=== PATIENT | male | born 1985 | race Caucasian/White ===

== ENCOUNTER 2016-09-14 05:30 | Emergency (ER) | payer BC ==
[2016-09-14] MEDS ORDERED: 0.9 % SODIUM CHLORIDE 1,000 ML BAG IV ONE (05:40)
[2016-09-14] MEDS ORDERED: ONDANSETRON HCL IV 4 MG/2 ML VIAL IV ONE (05:40)
[2016-09-14] MEDS ORDERED: KETOROLAC 30 MG/ML VIAL IVP ONE (05:40)
--- NOTE | 2016-09-14 05:47 | Emergency Department Record ---
History of Present Illness - General Source: Patient Mode of Arrival: Ambulatory Limitations: No limitations - History of Present Illness Initial Comments: 31 yo male presents with 3 days of recurrent LLQ pain. The pain is a sharpness or pressure in the LLQ. No swelling. No hematuria. He had a bowel movement and got some relief temporarily. No fever. No diarrhea. No urinary symptoms. The pain does seem to come and go. It return early this morning. Last year he had some LLQ pain as well. He was being worked up for a hernia but the pain stopped and he did not undergo testing. MD Complaint: Abdominal pain -: Days(s) (3) Location: LLQ Radiation: LLQ Migration to: LLQ Quality: Aching, Fullness, Stabbing Consistency: Intermittent Improves With: Bowel movement Worsens With: Nothing Associated Symptoms: Denies other symptoms <GRICELDA WHEAT - Last Filed: 09/14/16 06:38> <Sathya Momin - Last Filed: 09/14/16 07:31> - General Chief Complaint: Abdominal Pain Stated Complaint: ABDOMINAL PAIN Time Seen by Provider: 09/14/16 05:40 - Related Data Previous Rx's Medication Instructions Recorded Hydrocodone/Acetaminophen [Amberson 1 tab PO Q6H PRN #10 tab 09/14/16 5mg/325mg] Naproxen [Naprosyn] 500 mg PO Q12H #20 tab. 09/14/16 Allergies Allergy/AdvReac Type Severity Reaction Status Date / Time No Known Drug Allergies Allergy Verified 11/11/14 21:35 Review of Systems Constitutional: Denies: Chills, Fever, Malaise, Weakness Eyes: Denies: Eye discharge, Eye pain, Photophobia ENT: Denies: Congestion, Throat pain Respiratory: Denies: Cough, Dyspnea Cardiovascular: Denies: Chest pain, Syncope Endocrine: Denies: Fatigue, Polydipsia, Polyuria Gastrointestinal: Reports: As per HPI, Abdominal pain, Nausea. Denies: Constipation, Diarrhea, Hematemesis, Hematochezia, Melena, Vomiting Genitourinary: Denies: Discharge, Dysuria, Frequency, Hematuria, Incontinence, Retention, Testicular pain, Testicular mass, Urgency Musculoskeletal: Denies: Arthralgia, Back pain, Myalgia Skin: Denies: Bruising, Change in color, Rash Neurological: Denies: Headache Psychiatric: Denies: Anxiety Hematological/Lymphatic: Denies: Blood Clots, Easy bleeding, Easy bruising <GRICELDA WHEAT - Last Filed: 09/14/16 06:38> Past Medical History - SOCIAL HISTORY Smoking Status: Former smoker - RESPIRATORY Hx Respiratory Disorders: No - CARDIOVASCULAR Hx Cardio Disorders: No - NEURO Hx Neuro Disorders: No - GI Hx GI Disorders: No - Hx Genitourinary Disorders: No - ENDOCRINE Hx Endocrine Disorders: No - MUSCULOSKELETAL Hx Musculoskeletal Disorders: No - PSYCH Hx Psych Problems: No - HEMATOLOGY/ONCOLOGY Hx Hematology/Oncology Disorders: No <GRICELDA WHEAT - Last Filed: 09/14/16 06:38> Physical Exam - General General Appearance: Alert, Oriented x3, Cooperative, No acute distress Limitations: No limitations - Head Head exam: Normal inspection - Eye Eye exam: Normal appearance, PERRL. negative: Conjunctival injection, Scleral icterus - ENT ENT exam: Normal exam, Mucous membranes moist Ear exam: Normal external inspection Nasal Exam: Normal inspection Mouth exam: Normal external inspection - Neck Neck exam: Normal inspection, Full ROM. negative: Tenderness - Respiratory Respiratory exam: Normal lung sounds bilaterally. negative: Respiratory distress - Cardiovascular Cardiovascular Exam: Regular rate, Normal rhythm, Normal heart sounds - GI/Abdominal GI/Abdominal exam: Soft, Tenderness (tender in the LLQ, soft abdomen, no obvious mass on examination or hernia, testicles are non tender). negative: Diminished bowel sounds, Distended, Guarding, Hernia, Rebound, Rigid - Rectal Rectal exam: Deferred - exam: Normal inspection. negative: Scrotal swelling, Testicular tenderness, Urethral discharge - Extremities Extremities exam: Normal inspection, Full ROM, Normal capillary refill. negative: Tenderness - Back Back exam: Reports: Normal inspection, Full ROM. Denies: CVA tenderness (R), CVA tenderness (L), Muscle spasm, Rash noted, Tenderness - Neurological Neurological exam: Alert, Normal gait, Oriented X3 - Psychiatric Psychiatric exam: Normal affect, Normal mood. negative: Anxious - Skin Skin exam: Dry, Intact, Normal color, Warm <GRICELDA WHEAT - Last Filed: 09/14/16 06:38> Course - Reevaluation(s) Reevaluation #1: The CBC and CMP were reviewed. No acute changes. The patient is getting some improvement is pain control and nausea control. 09/14/16 06:10 Reevaluation #2: CT from [facility] reviewed: multiple prominent lymph nodes non pathologic in the mesentery. Non specific but can be found with mesenteric adenitis. Otherwise no acute processs UA has not been obtained and patient is unable to provide one at this time. The patient is doing much better at this time Pain is controlled. 09/14/16 06:38 09/14/16 06:38 <GRICELDA WHEAT - Last Filed: 09/14/16 06:38> Vital Signs 09/14/16 09/14/16 05:36 07:18 Temperature 97.7 F Pulse Rate 81 Pulse Rate [ 66 Pulse Ox Probe] Respiratory 22 16 Rate Blood Pressure 139/101 Blood Pressure 128/84 [Right Arm] Pulse Ox 99 98 - Reevaluation(s) Reevaluation #1: The patient was informed of his UA results and was instructed to see his PCP for recheck of the UA due to the small amount of RBC's present. 09/14/16 07:31 <Sathay Momin - Last Filed: 09/14/16 07:31> Medical Decision Making - Lab Data Result diagrams: 09/14/16 05:45 09/14/16 05:45 <GRICELDA WHEAT - Last Filed: 09/14/16 06:38> - Lab Data Result diagrams: 09/14/16 05:45 09/14/16 05:45 Lab Results 09/14/16 09/14/16 09/14/16 Range/Units 05:45 05:45 07:10 WBC 11.5 (4.2-12.2) K/uL RBC 5.26 (4.40-5.70) M/uL Hgb 15.2 (14.0-18.0) gm/dl Hct 45.5 (42.0-52.0) % MCV 86.5 (81-97) fl MCH 28.9 (27-33) pg MCHC 33.4 (32-36) g/dl RDW 13.0 (11.5-14.5) % Plt Count 424 H (130-400) K/uL MPV 8.9 (7.4-10.4) fl Neutrophils % 27.0 L (47-80) % Band Neutrophils % 0.0 (0-5) % Lymphocytes % 64.0 H (16-45) % Monocytes % 8.0 (0-9) % Eosinophils % 1.0 (0-6) % Basophils % 0.0 (0-6) % Sodium 145 (136-145) mmol/L Potassium 3.4 L (3.5-5.1) mmol/L Chloride 108 H (98-107) mmol/L Carbon Dioxide 26.1 (22-30) mmol/L Anion Gap 10.9 (7-16) BUN 15 (9-20) mg/dL Creatinine 0.9 (0.66-1.25) mg/dL Estimated GFR > 60 ml/min Random Glucose 119 H (70-110) mg/dL Calcium 9.2 (8.5-10.1) mg/dL Urine Color Yellow Urine Appearance Clear Urine pH 6.0 (5.0-8.0) Ur Specific [place] 1.025 (1.002-1.030) Urine Protein Negative (NEGATIVE) Urine Glucose (UA) Negative (NEGATIVE) Urine Ketones Negative (NEGATIVE) Urine Blood Large H (NEGATIVE) Urine Nitrite Negative (NEGATIVE) Urine Bilirubin Negative (NEGATIVE) Urine Urobilinogen 0.2 (0.20 - 1.00) E.U./dL Ur Leukocyte Esterase Negative (NEGATIVE) Urine RBC 7 - 10 (NONE SEEN) Urine WBC None seen (0-2/hpf) Ur Epithelial Cells None seen (FEW) Urine Bacteria None seen <Sathya Momin - Last Filed: 09/14/16 07:31> Disposition <GRICELDA WHEAT - Last Filed: 09/14/16 06:38> <Sathya Momin - Last Filed: 09/14/16 07:31> Clinical Impression: Abdominal pain, Mesenteric adenitis Instructions: Mesenteric Adenitis (ED) Additional Instructions: Return to the ER if you have any fever, uncontrolled pain, vomiting or new symptoms Call your doctor for close follow up Rest and stay well hydrated Prescriptions: Naproxen [Naprosyn] 500 mg PO Q12H #20 tab. Hydrocodone/Acetaminophen [Amberson 5mg/325mg] 1 tab PO Q6H PRN #10 tab PRN Reason: Pain - General Forms: Patient Portal Access
[2016-09-14] MEDS ORDERED: MORPHINE SULFATE 5 MG/ML PFS IVP ONE (05:49)
[2016-09-14 05:51] LABS: HEMATOCRIT 45.5 % (42.0-52.0); HEMOGLOBIN 15.2 gm/dl (14.0-18.0); MEAN CELL VOLUME 86.5 fl (81-97); MEAN CORPUSCULAR HEMOGLOBIN 28.9 pg (27-33); MEAN CORPUSCULAR HGB CONC 33.4 g/dl (32-36); MEAN PLATELET VOLUME 8.9 fl (7.4-10.4); PLATELET COUNT 424 K/uL (130-400); RED BLOOD COUNT 5.26 M/uL (4.40-5.70); WHITE BLOOD COUNT W/O DIFF 11.5 K/uL (4.2-12.2)
[2016-09-14 06:01] LABS: ANION GAP 10.9 (7-16); BLOOD UREA NITROGEN 15 mg/dL (9-20); CARBON DIOXIDE 26.1 mmol/L (22-30); CREATININE 0.9 mg/dL (0.66-1.25); EST GLOMERULAR FILTRATION RATE > 60 ml/min; GLUCOSE,RANDOM 119 mg/dL (70-110)
[2016-09-14 07:17] LABS: URINE APPEARANCE CLEAR; URINE BILIRUBIN NEGATIVE (NEGATIVE); URINE BLOOD LARGE (NEGATIVE); URINE COLOR YELLOW; URINE GLUCOSE (UA) NEGATIVE (NEGATIVE); URINE KETONE NEGATIVE (NEGATIVE); URINE LEUKOCYTE ESTERASE NEGATIVE (NEGATIVE); URINE NITRITE NEGATIVE (NEGATIVE); URINE PROTEIN NEGATIVE (NEGATIVE); URINE UROBILINOGEN 0.2 E.U./dL (0.20 - 1.00)
[2016-09-14 07:22] LABS: URINE BACTERIA NONE SEEN; URINE EPITHELIAL CELLS NONE SEEN (FEW); URINE WBC NONE SEEN (0-2/hpf)
--- NOTE | 2016-09-14 10:04 | CT SCAN REPORT ---
EXAM: CT OF THE ABDOMEN AND PELVIS WITHOUT CONTRAST HISTORY: LEFT LOWER ABDOMINAL PAIN. TECHNIQUE: Sequential axial images were obtained from the diaphragms through the ischiorectal fossa without intravenous or oral contrast administration. FINDINGS: There is a 3 mm obstructing calculus at the left ureteral vesicular junction. This produces mild left hydronephrosis. No perinephric fat stranding. No additional calculi are appreciated. The nonopacified liver, gallbladder, pancreas, and spleen appear normal. The adrenal glands appear normal. The small bowel appears normal. The appendix is visualized and appears normal. The colon appears normal. The urinary bladder appears normal. The osseous structures are normal. IMPRESSION: 3 MM OBSTRUCTING CALCULUS AT THE LEFT URETERAL VESICULAR JUNCTION. THIS PRODUCES MILD LEFT HYDRONEPHROSIS. JOB NUMBER: [id number] [facility]
== END 2016-09-14 07:35 | disposition home or self-care (01) ==
LOC: ER 05:30
DX: I88.0 Nonspecific mesenteric lymphadenitis (principal); R10.32 Left lower quadrant pain
CPT/HCPCS: 99284 ×2; 96374; 96375; 80048; 81001; 85027; 74176; J1885; J2405; J2270; J7030